=== PATIENT | female | born 1965 | race Caucasian/White ===

== ENCOUNTER 2019-12-03 14:02 | Outpatient (REF) | payer BC, SELFPAY ==
[2019-12-04 17:49] LABS: COVID-19 RT-PCR Result See Comments
== END 2019-12-03 14:22 ==
LOC: LBN 14:02
PROVIDERS: Visit Provider Family Medicine
DX: Z20.828 Contact with and (suspected) exposure to other viral communicable diseases (principal); Z11.59 Encounter for screening for other viral diseases; R05 Cough; R50.81 Fever presenting with conditions classified elsewhere
CPT/HCPCS: 87449; U0003